=== PATIENT | male | born 1975 | race Caucasian/White ===

== ENCOUNTER → 2016-08-05 | Emergency (ER) | payer SELFPAY ==
[~2016-08-05] MED LIST: FAMOTIDINE 20 MG/50 ML IVPB 20 MG in PREMIX 50 IVPB ONE; FAMOTIDINE 20 MG/50 ML IVPB 50 ML IVPB ONE; FOLIC ACID INJECTION - 1 MG, THIAMINE HCL 100 MG, MULTIVIT INJECTION ADULT 10 ML in SOD... IVPB ONE; LORAZEPAM CARPU-JECT 2 MG/ML DISP.SYRIN IVPUSH ONE; LORAZEPAM CARPU-JECT 2 MG/ML DISP.SYRIN ONE; ONDANSETRON 4 MG/2 ML VIAL IVPUSH ONE; ONDANSETRON 4 MG/2 ML VIAL ONE; SODIUM CHLORIDE 1,000 ML IV STA; chlordiazePOXIDE HCL 25 MG CAPSULE ONE; chlordiazePOXIDE HCL 25 MG CAPSULE PO ONE
[2016-08-05 21:38] VITALS: TEMP 98.1; BMI 30.8
--- NOTE | 2016-08-05 21:43 | PDOC ---
History of Present Illness - General History Source: Patient Exam Limitations: No Limitations - History of Present Illness Initial Comments: 08/05/16 22:12 The patient is a 40 year old male with a significant past medical history of ETOH abuse, smoker (8-10 cigs/day), and depression, who presents to the ER via EMS for alcohol intoxication for one week and vomiting for one day. Patient states he was out with his friends and drank one bottle of vodka per day for one week. His last bottle of alcohol was this afternoon. Patient also admits to abusing marijuana and cocaine. Patient took himself to [facility] earlier today for alcohol detox. He states he has had a history of alcohol abuse but has not drank alcohol for one year prior to this event. [facility] alerted EMS for patients tachycardia. On EMS arrival, patient had a HR of 149 and an unsteady gait and was given a liter of fluids. On interview, patient states he has anxiety, dizziness, and blurred vision. He states he has had multiple episodes of vomiting today and is slightly short of breath. Patient also reports accompanied abdominal pain localized to the right side. Patient says his symptoms are aggravated by light and loud noise. He reports he has not eaten for 3 days. Denies diarrhea, hematochezia Denies hematuria Denies chest pain Denies trauma, head or neck injury Denies diaphoresis Denies fever, chills, cough <Amara Fallon - Last Filed: 08/06/16 01:56> - General History Source: Patient <Mingo Koch - Last Filed: 08/06/16 02:02> - General Chief Complaint: Tachycardia Stated Complaint: INTOX Time Seen by Provider: 08/05/16 21:32 Past History <Amara Fallon - Last Filed: 08/06/16 01:56> - Past Medical History Anemia: No Asthma: No Cancer: No Cardiac Disorders: No CVA: No COPD: No CHF: No Diabetes: No GI Disorders: No Disorders: No HTN: No Hypercholesterolemia: No Kidney Stones: No Liver Disease: No Suicide Attempt (Hx): No Seizures: No Thyroid Disease: No - Surgical History Abdominal Surgery: No Appendectomy: No Cardiac Surgery: No Cholecystectomy: No Lung Surgery: No Neurologic Surgery: No Orthopedic Surgery: Yes (L clavicle fx sx IN 2OO6) - Reproductive History Testicular Surgery: No - Psycho/Social/Smoking Cessation Hx Anxiety: No Suicidal Ideation: No Smoking History: Current every day smoker Have you smoked in the past 12 months: No Number of Cigarettes Smoked Daily: 20 If you are a former smoker, when did you quit?: 2014 Information on smoking cessation initiated: No 'Breaking Loose' booklet given: 09/03/15 Hx Alcohol Use: No Drug/Substance Use Hx: No Substance Use Type: Alcohol Hx Substance Use Treatment: Yes (03/29/15 TO 04/02/15) <Mingo Koch - Last Filed: 08/06/16 02:02> - Past Medical History Allergies/Adverse Reactions: Allergies Allergy/AdvReac Type Severity Reaction Status Date / Time No Known Allergies Allergy Verified 08/05/16 21:32 Home Medications: Ambulatory Orders NK [No Known Home Medication] 08/06/16 Review of Systems - Review of Systems Able to Perform ROS?: Yes Comments:: 08/05/16 22:12 CONSTITUTIONAL: Absent: fever, no chills, no fatigue EYES: Present: blurred vision ENT: Absent: ear pain, no sore throat CARDIOVASCULAR: Absent: chest pain, no palpitations RESPIRATORY: Present: shortness of breath Absent: cough GI: Present: abdominal pain, nausea, vomiting Absent: no constipation, no diarrhea GENITOURINARY: Absent: dysuria, no frequency, no hematuria MUSCULOSKELETAL: Absent: back pain, no arthralgia, no myalgia SKIN: Absent: rash NEURO: Present: Dizziness Absent: headache <Uts,Amara - Last Filed: 08/06/16 01:56> *Physical Exam - Vital Signs Last Vital Signs Temp Pulse Resp BP Pulse Ox 98.1 F 116 H 14 153/81 100 08/05/16 21:33 08/05/16 21:33 08/05/16 21:33 08/05/16 21:33 08/05/16 21:33 - Physical Exam Comments: 08/05/16 22:13 GENERAL: Alert and oriented x 3. Well-appearing, well-nourished. No apparent distress. HEENT: Normocephalic, atraumatic. PERRL, EOM intact. CARDIOVASCULAR: Tachycardic. Normal S1, S2. Regular rhythm. PULMONARY: Clear to auscultation bilaterally. ABDOMEN: Soft, non-distended, non-tender. EXTREMITIES: Normal ROM in all four extremities. No gross deformities. SKIN: Warm, dry. No rash NEUROLOGICAL: Hand tremors on arm extension <Amara Fallon - Last Filed: 08/06/16 01:56> - Vital Signs Last Vital Signs Temp Pulse Resp BP Pulse Ox 98.1 F 116 H 14 153/81 100 08/05/16 21:33 08/05/16 21:33 08/05/16 21:33 08/05/16 21:33 08/05/16 21:33 <Mingo Koch - Last Filed: 08/06/16 02:02> ED Treatment Course - LABORATORY CBC & Chemistry Diagram: 08/05/16 22:55 08/05/16 22:55 - RADIOLOGY Radiograph Interpretation: 08/06/16 01:54 Chest XR impression reported by Dr. Yoli Flores: Slightly limited examination without evidence of acute cardiopulmonary disease <Amara Fallon - Last Filed: 08/06/16 01:56> - LABORATORY CBC & Chemistry Diagram: 08/05/16 22:55 08/05/16 22:55 <Mingo Koch - Last Filed: 08/06/16 02:02> Medical Decision Making - Medical Decision Making 08/06/16 01:22 Dr. Koch: The scribe's documentation has been prepared under my direction and personally reviewed by me in its entirery. I confirm that the note above accurately reflects all work, treatment, procedures, and medical decision making performed by me. 08/06/16 02:00 HR is 104 now. Pt feeling better. Hemodynamically stable. Will discharge to [facility]. <Mingo Koch - Last Filed: 08/06/16 02:02> *DC/Admit/Observation/Transfer - Attestations Scribe Attestion: 08/05/16 22:15 Documentation prepared by Amara Fallon, acting as medical staff services manager for Mingo Koch DO. <Amara Fallon - Last Filed: 08/06/16 01:56> - Discharge Dispostion Admit: No <Mingo Koch - Last Filed: 08/06/16 02:02> Diagnosis at time of Disposition: EtOH dependence - Discharge Dispostion Disposition: I.P. ALCOHOL/SUBS ABUSE REHAB Condition at time of disposition: Stable - Patient Instructions Printed Discharge Instructions: DI for Alcohol Abuse
[2016-08-05 23:03] LABS: BASOPHIL 0.4 % (0-2.0); EOSINOPHIL 0.5 % (0-4.5); MCH 31.4 pg (25.7-33.7); MCHC 33.9 g/dl (32.0-35.9); MEAN CELL VOLUME 92.7 fl (80-96); MEAN PLT VOLUME 8.4 fl (7.5-11.1); NEUTROPHILS 69.7 % (42.8-82.8); PLATELET COUNT 230 K/MM3 (134-434); RDW 13.7 % (11.9-15.9); WHITE BLOOD COUNT 7.8 K/mm3 (4.0-10.0)
[2016-08-05 23:13] LABS: INR 1.09 (0.82-1.09)
[2016-08-06 00:16] LABS: ALK PHOS 65 U/L (45-117); ANION GAP 12 (8-16); BILIRUBIN,TOTAL 0.3 mg/dL (0.2-1.0); CALCIUM 8.4 mg/dL (8.5-10.1); CO2 27 mmol/L (21-32); COCKROFT - GAULT 185.21; CREATININE 0.8 mg/dL (0.7-1.3); GLUCOSE,RANDOM 113 mg/dL (74-106); MAGNESIUM 1.7 mg/dL (1.8-2.4); SGOT/AST 170 U/L (15-37); SGPT/ALT 162 U/L (12-78); TOT PROT 7.2 g/dl (6.4-8.2); TROPONIN I < 0.02 ng/ml (0.00-0.05)
[2016-08-06 02:03] VITALS: BP 114/63; PULSE 103
--- NOTE | 2016-08-06 11:18 | EKG ---
Test Reason : Blood Pressure : / mmHG Vent. Rate : 110 BPM Atrial Rate : 110 BPM P-R Int : 162 ms QRS Dur : 096 ms QT Int : 358 ms P-R-T Axes : 073 083 057 degrees QTc Int : 484 ms SINUS TACHYCARDIA OTHERWISE NORMAL ECG WHEN COMPARED WITH ECG OF 17-JAN-2001 20:53, PREVIOUS ECG IS PRESENT Confirmed by NIEVES CAREY MD ([id number]) on 08/06/2016 11:18:39 AM Referred By: Confirmed By:NIEVES CAREY MD
--- NOTE | 2016-08-09 12:57 | EKG ---
Test Reason : Blood Pressure : / mmHG Vent. Rate : 117 BPM Atrial Rate : 117 BPM P-R Int : 172 ms QRS Dur : 098 ms QT Int : 332 ms P-R-T Axes : 056 046 033 degrees QTc Int : 463 ms SINUS TACHYCARDIA INCOMPLETE RIGHT BUNDLE BRANCH BLOCK WHEN COMPARED WITH ECG OF 17-JAN-2001 20:53, LIKELY NO SIGNIFICANT CHANGES WERE SEEN Confirmed by DAREN CORRALES MD ([id number]) on 08/09/2016 12:57:23 PM Referred By: Confirmed By:DAREN CORRALES MD
== END | disposition other institution (70) ==
LOC: JER 21:21
PROC: 3E033GC Introduction of Other Therapeutic Substance into Peripheral Vein, Percutaneous Approach (ICD-10-PCS; principal; 2016-08-05)
PROC: 3E0337Z Introduction of Electrolytic and Water Balance Substance into Peripheral Vein, Percutaneous Approach (ICD-10-PCS; 2016-08-05)
DX: F10.20 Alcohol dependence, uncomplicated (principal); F17.210 Nicotine dependence, cigarettes, uncomplicated
CPT/HCPCS: 36415; 71010-TC; 80053; 80307; 82550; 82553; 83690; 83735; 83880; 84484; 85025; 85610; 86850; 86900; 86901; 93005; 93010; 99285-25

== ENCOUNTER 2016-08-06 04:30 | Inpatient (IN) | payer OTHER ==
--- NOTE | 2016-08-06 04:49 | HP ---
CIWA Score - CIWA Score Nausea/Vomitin Muscle Tremors: 5 Anxiety: 4-Mod. Anxious/Guarded Agitation: 4-Moderately Restless Paroxysmal Sweats: 4-Forehead w/Sweat Beads Orientation: 0-Oriented Tacttile Disturbances: 3-Moderate Itch/Numb/Burn Auditory Disturbances: 2-Mild Harshness/Frighten Visual Disturbances: 2-Mild Sensitivity Headache: 1-Very Mild CIWA-Ar Total Score: 28 Admission ROS BHS - HPI Chief Complaint: c/o withdrawal sx's seeking detox txment. Allergies/Adverse Reactions: Allergies Allergy/AdvReac Type Severity Reaction Status Date / Time No Known Allergies Allergy Verified 08/06/16 04:43 History of Present Illness: 40 Y.O. MALE WITH ALCOHOLISM ADMITTED TO DETOX. CLIENT SENT FROM [facility] AFTER BEING SENT THERE YESTERDAY FOR SOB, N/V, AND TACHYCARDIA (HR 149'S). HE IS KNOWN TO [facility]. REORTS A ONE YEAR LONG SOBRIETY RELAPSING 2 WEEKS AGO. Exam Limitations: No Limitations - Ebola screening Have you traveled outside of the country in the last 21 days: No Have you had contact with anyone from an Ebola affected area: No Have you been sick,other than usual withdrawal symptoms: No Do you have a fever: No - Review of Systems Constitutional: Chills, Night Sweats EENT: reports: Tearing Respiratory: reports: No Symptoms reported Cardiac: reports: No Symptoms Reported GI: reports: Nausea, Poor Appetite, Vomiting, Abdominal cramping : reports: No Symptoms Reported Musculoskeletal: reports: No Symptoms Reported Integumentary: reports: No Symptoms Reported Neuro: reports: No Symptoms reported Endocrine: reports: No Symptoms Reported Hematology: reports: No Symptoms Reported Psychiatric: reports: Anxious Other Systems: Reviewed and Negative Patient History - Patient Medical History Hx Anemia: No Hx Asthma: No Hx Chronic Obstructive Pulmonary Disease (COPD): No Hx Cancer: No Hx Cardiac Disorders: No Hx Congestive Heart Failure: No Hx Hypertension: No Hx Hypercholesterolemia: No Hx Pacemaker: No HX Cerebrovascular Accident: No Hx Seizures: No Hx Diabetes: No Hx Gastrointestinal Disorders: No Hx Liver Disease: No Hx Genitourinary Disorders: No Hx Sexually Transmitted Disorders: No Hx Renal Disease (ESRD): No Hx Thyroid Disease: No Hx Human Immunodeficiency Virus (HIV): No Hx Hepatitis C: No Hx Depression: Yes (NO MEDS) Hx Suicide Attempt: No Hx Bipolar Disorder: No Hx Schizophrenia: No Other Medical History: ANXIETY - Patient Surgical History Past Surgical History: Yes Hx Neurologic Surgery: No Hx Cataract Extraction: No Hx Cardiac Surgery: No Hx Lung Surgery: No Hx Breast Surgery: No Hx Breast Biopsy: No Hx Abdominal Surgery: No Hx Appendectomy: No Hx Cholecystectomy: No Hx Genitourinary Surgery: No Hx Section: No Hx Orthopedic Surgery: Yes (L clavicle fx sx IN 2OO6) Anesthesia Reaction: No - PPD History Previous Implant?: Yes Documented Results: Negative w/proof Implanted On Prior [facility] Admission?: Yes Date: 09/05/15 Results: O MM PPD to be Administered?: No - Smoking Cessation Smoking history: Current every day smoker Have you smoked in the past 12 months: No Aproximately how many cigarettes per day: 10 Hx Chewing Tobacco Use: No Initiated information on smoking cessation: Yes 'Breaking Loose' booklet given: 08/06/16 - Substance & Tx. History Hx Alcohol Use: Yes Hx Substance Use: No Substance Use Type: Alcohol Hx Substance Use Treatment: Yes ([facility]) - Substances Abused VODKA Route: Oral Frequency: Daily Amount used: 1 QUART Age of first use: 14 Date of Last Use: 08/05/16 Family Disease History - Family Disease History Family Disease History: Diabetes: Father (HTN), Heart Disease: Father, [place]: Grandparent, Other: Sister (pain killer) Admission Physical Exam [facility] - Physical General Appearance: Yes: Appropriately Dressed, Moderate Distress, Alcohol on Breath HEENTM: Yes: EOMI, Normocephalic, Normal Voice, WILLEM, Pharynx Normal, Rhinorrhea Respiratory: Yes: Chest Non-Tender, Lungs Clear, Normal Breath Sounds, No Respiratory Distress, No Accessory Muscle Use Neck: Yes: No masses,lesions,Nodules, Supple, Trachea in good position Breast: Yes: Breast Exam Deferred Cardiology: Yes: Regular Rhythm, S1, S2, Tachycardia Abdominal: Yes: Normal Bowel Sounds, Non Tender, Flat, Soft Genitourinary: Yes: Within Normal Limits Back: Yes: Within Normal Limits Musculoskeletal: Yes: full range of Motion, Gait Steady Extremities: Yes: Normal Capillary Refill, Normal Range of Motion, Non-Tender, Tremors Neurological: Yes: day care worker II-XII NML intact, Fully Oriented, Alert, Motor Strength 5/5 Integumentary: Yes: Normal Color, Warm, Diaphoresis Lymphatic: Yes: Within Normal Limits - Diagnostic (1) Alcohol dependence with withdrawal Current Visit: No Status: Acute Qualifiers: Complication of substance-induced condition: uncomplicated Qualified Code(s): F10.230 - Alcohol dependence with withdrawal, uncomplicated (2) Nicotine dependence Current Visit: No Status: Chronic Cleared for Admission [facility] - Detox or Rehab [facility] Level of Care: Medically Managed Detox Regimen/Protocol: Librium S Breath Alcohol Content Breath Alcohol Content: 0.081 Vital Signs - Vital Signs Vital Signs Refused: No Temperature: 97.5 F Temperature Source: Oral Pulse Rate: 128 Respiratory Rate: 22 Blood Pressure: 158/76 BP Location: Left Arm Blood Pressure Position: Sitting - Height Height: 6 ft 2 in - Weight Weight: 104.78 kg Weight Measurement Method: Standing Scale Body Mass Index (BMI): 29.6 Urine Drug Screen - Test Device Lot Number: [id number] Expiration Date: 02/24/18 - Control Is Test Valid: Yes - Results Drug Screen Negative: Yes Urine Drug Screen Results: MET-Methamphetamine
[2016-08-06 04:55] VITALS: BMI 29.6
[2016-08-06] MEDS ORDERED: P-EPHED 60MG/TRIPROLIDI 2.5MG TABLET PO PRN (05:02)
[2016-08-06] MEDS ORDERED: NICOTINE POLACRILEX 2 MG GUM BC PRN (05:02)
[2016-08-06] MEDS ORDERED: LOPERAMIDE HCL 2 MG CAPSULE PO PRN (05:02)
[2016-08-06] MEDS ORDERED: MAGNESIUM CITRATE 300 ML BOTTLE PO PRN (05:02)
[2016-08-06] MEDS ORDERED: MAGNESIUM HYDROX 2400MG/30ML ORAL SUSPENSION 30 ML CUP PO PRN (05:02)
[2016-08-06] MEDS ORDERED: guaiFENesin/D-METHORPHAN HB 10 ML UNIT-DOSE CUPS PO PRN (05:02)
[2016-08-06] MEDS ORDERED: ACETAMINOPHEN 325 MG TABLET (FP) PO PRN (05:02)
[2016-08-06] MEDS ORDERED: MENTHOL/PHENOL 1 EACH UD MM PRN (05:02)
[2016-08-06] MEDS ORDERED: IBUPROFEN 400 MG TABLET (FP) PO PRN (05:02)
[2016-08-06] MEDS ORDERED: diphenhydrAMINE HCL 50 MG CAPSULE PO PRN (05:02)
[2016-08-06] MEDS ORDERED: TRIMETHOBENZAMIDE HCL 200MG/2ML INJ IM PRN (05:04)
[2016-08-06] MEDS: chlordiazePOXIDE HCL 25 MG CAPSULE PO SCH ×4 (06:23→22:11)
--- NOTE | 2016-08-06 09:35 | CONSULT ---
[facility] Psychiatric Consult - Data Date of interview: 08/06/16 Admission source: [facility] Identifying data: Readmission to [facility] for this 40 y/o male seeking detox treatment on for alcohol dependence.Patient is single without children,domiciled and employed. Substance Abuse History: - Smoking Cessation. Smoking history: Current every day smoker. Have you smoked in the past 12 months: No. Aproximately how many cigarettes per day: 10. Hx Chewing Tobacco Use: No. Initiated information on smoking cessation: Yes. 'Breaking Loose' booklet given: 08/06/16. - Substance & Tx. History. Hx Alcohol Use: Yes. Hx Substance Use: No. Substance Use Type : Alcohol. Hx Substance Use Treatment: Yes ([facility]). - Substances Abused. VODKA. Route: Oral. Frequency: Daily. Amount used: 1 QUART. Age of first use : 14. Date of Last Use: 08/05/16. Confirmed by patient. Medical History: Patient endorses good general health. Psychiatric History: Patient denies. Physical/Sexual Abuse/Trauma History: Patient denies. Additional Comment: Urine Drug Screen Results: MET-Methamphetamine.Noted. Mental Status Exam - Mental Status Exam Alert and Oriented to: Time, Place, Person Cognitive Function: Good Patient Appearance: Well Groomed Mood: Nervous, Withdrawn, Anxious Affect: Mood Congruent Patient Behavior: Fatigued, Appropriate, Cooperative Speech Pattern: Clear Voice Loudness: Normal Thought Process: Goal Oriented Thought Disorder: Not Present Hallucinations: Denies Suicidal Ideation: Denies Homicidal Ideation: Denies Insight/Judgement: Poor Sleep: Poorly, Difficulty falling asleep Appetite: Good Muscle strength/Tone: Normal Gait/Station: Normal Psychiatric Findings - Problem List ([place] 1, 2,3) (1) Alcohol dependence with withdrawal Current Visit: Yes Status: Acute Qualifiers: Complication of substance-induced condition: uncomplicated Qualified Code(s): F10.230 - Alcohol dependence with withdrawal, uncomplicated (2) Nicotine dependence Current Visit: Yes Status: Acute (3) Drug-induced mood disorder Current Visit: Yes Status: Acute (4) Insomnia Current Visit: Yes Status: Acute - Initial Treatment Plan Initial Treatment Plan: Psychoeducation.Detoxification.Medication : seroquel 100 mg po hs (patient's request).Side effects/benefits discussed with patient.He agrees with this careplan.Observation.
[2016-08-06] MEDS: PRENATAL VITAMINS W/ FOLIC ACID TABLET (FP) PO SCH (10:21)
[2016-08-06] MEDS: NICOTINE 14 MG/24 HOURS TOPICAL PATCH TD SCH (10:21)
--- NOTE | 2016-08-06 12:57 | PN ---
S CIWA - CIWA Score Nausea/Vomitin-Mild Nausea/No Vomiting Muscle Tremors: 4-Moderate,w/Arms Extend Anxiety: 4-Mod. Anxious/Guarded Agitation: 2 Paroxysmal Sweats: 3 Orientation: 0-Oriented Tacttile Disturbances: 2-Mild Itch/Numbness/Burn Auditory Disturbances: 0-None Visual Disturbances: 3-Moderate Sensitivity Headache: 0-None Present CIWA-Ar Total Score: 19 BHS Progress Note (SOAP) Subjective: Interrupted sleep, Diarrhea, Vomiting, Sweating, Body Aches, Tremors. Objective: PT. A & O X 3, OBSERVED AMBULATING ON UNIT. 08/06/16 12:55 Vital Signs Temperature 98.1 F 08/06/16 10:04 Pulse Rate 96 H 08/06/16 10:04 Respiratory Rate 16 08/06/16 10:04 Blood Pressure 136/75 08/06/16 10:04 O2 Sat by Pulse Oximetry (%) ADMISSION LABS PENDING. 08/06/16 12:56 Assessment: 08/06/16 12:56 WITHDRAWAL SYMPTOMS. Plan: CONTINUE DETOX. PATIENT ADVISED TO FOLLOW-UP WITH H[facility]AKER [employer] AFTER DISCHARGE FROM DETOX FOR GENERAL MEDICAL ASSESSMENT AND FOR ABNORMAL ADMISSION LAB VALUES.
[2016-08-06] MEDS: chlordiazePOXIDE HCL 25 MG CAPSULE PO PRN (14:24)
[2016-08-06] MEDS: MAG HYDROX/AL HYDROX/SIMETH 30 ML UNIT-DOSE CUP PO PRN (15:30)
[2016-08-06 15:58] LABS: MCH 31.1 pg (25.7-33.7); MCHC 33.2 g/dl (32.0-35.9); MEAN CELL VOLUME 93.7 fl (80-96); MEAN PLT VOLUME 9.1 fl (7.5-11.1); PLATELET COUNT 219 K/MM3 (134-434); WHITE BLOOD COUNT 6.7 K/mm3 (4.0-10.0)
[2016-08-06 16:26] LABS: ALBUMIN 3.9 g/dl (3.4-5.0); ANION GAP 13 (8-16); CALCIUM 8.4 mg/dL (8.5-10.1); CO2 25 mmol/L (21-32); COCKROFT - GAULT 237.6; CREATININE 0.6 mg/dL (0.7-1.3); GLUCOSE,RANDOM 102 mg/dL (74-106); SGOT/AST 156 U/L (15-37); SGPT/ALT 152 U/L (12-78)
[2016-08-06 16:28] LABS: ALK PHOS 62 U/L (45-117); BILIRUBIN,TOTAL 0.9 mg/dL (0.2-1.0); TOT PROT 6.9 g/dl (6.4-8.2)
[2016-08-06] MEDS: THIAMINE HCL 100 MG TABLET (FP) PO SCH (22:11)
[2016-08-06] MEDS: QUEtiapine FUMARATE 100 MG TABLET (FP) PO SCH (22:11)
[2016-08-07] MEDS: MAG HYDROX/AL HYDROX/SIMETH 30 ML UNIT-DOSE CUP PO PRN ×2 (00:51→15:12)
[2016-08-07] MEDS: chlordiazePOXIDE HCL 25 MG CAPSULE PO SCH ×4 (05:28→22:04)
[2016-08-07] MEDS: NICOTINE 14 MG/24 HOURS TOPICAL PATCH TD SCH (10:15)
[2016-08-07] MEDS: PRENATAL VITAMINS W/ FOLIC ACID TABLET (FP) PO SCH (10:15)
[2016-08-07] MEDS: hydrOXYzine PAMOATE 50 MG CAPSULE (FP) PO PRN ×3 (11:03→19:20)
[2016-08-07] MEDS: chlordiazePOXIDE HCL 25 MG CAPSULE PO PRN (13:45)
--- NOTE | 2016-08-07 14:55 | PN ---
S CIWA - CIWA Score Nausea/Vomitin Muscle Tremors: 4-Moderate,w/Arms Extend Anxiety: 2 Agitation: 1-Slight > Activity Paroxysmal Sweats: 3 Orientation: 0-Oriented Tacttile Disturbances: 0-None Auditory Disturbances: 2-Mild Harshness/Frighten Visual Disturbances: 2-Mild Sensitivity Headache: 0-None Present CIWA-Ar Total Score: 17 BHS Progress Note (SOAP) Subjective: Tremors, BNausea, Back Ache, Sweating, Interrupted Sleep. Objective: PT. A & O X 3, OBSERVED AMBULATING ON UNIT. 08/07/16 14:54 Vital Signs Temperature 96.4 F L 08/07/16 12:58 Pulse Rate 113 H 08/07/16 12:58 Respiratory Rate 20 08/07/16 12:58 Blood Pressure 142/86 08/07/16 12:58 O2 Sat by Pulse Oximetry (%) Laboratory Last Values WBC 6.7 K/mm3 (4.0-10.0) 08/06/16 11:15 RBC 4.35 M/mm3 (4.00-5.60) 08/06/16 11:15 Hgb 13.5 GM/dL (11.7-16.9) 08/06/16 11:15 Hct 40.8 % (35.4-49) 08/06/16 11:15 MCV 93.7 fl (80-96) 08/06/16 11:15 MCHC 33.2 g/dl (32.0-35.9) 08/06/16 11:15 RDW 14.0 % (11.9-15.9) 08/06/16 11:15 Plt Count 219 K/MM3 (134-434) 08/06/16 11:15 MPV 9.1 fl (7.5-11.1) 08/06/16 11:15 Sodium 138 mmol/L (136-145) 08/06/16 11:15 Potassium 3.6 mmol/L (3.5-5.1) 08/06/16 11:15 Chloride 100 mmol/L (98-107) 08/06/16 11:15 Carbon Dioxide 25 mmol/L (21-32) 08/06/16 11:15 Anion Gap 13 (8-16) 08/06/16 11:15 BUN 5 mg/dL (7-18) L 08/06/16 11:15 Creatinine 0.6 mg/dL (0.7-1.3) L D 08/06/16 11:15 Creat Clearance w eGFR > 60 (>60) 08/06/16 11:15 Random Glucose 102 mg/dL (74-106) 08/06/16 11:15 Calcium 8.4 mg/dL (8.5-10.1) L 08/06/16 11:15 Total Bilirubin 0.9 mg/dL (0.2-1.0) D 08/06/16 11:15 AST 156 U/L (15-37) H 08/06/16 11:15 ALT 152 U/L (12-78) H 08/06/16 11:15 Alkaline Phosphatase 62 U/L (45-117) 08/06/16 11:15 Total Protein 6.9 g/dl (6.4-8.2) 08/06/16 11:15 Albumin 3.9 g/dl (3.4-5.0) 08/06/16 11:15 RPR Titer Nonreactive (NONREACTIVE) 08/06/16 11:15 LABS NOTED. Assessment: 08/07/16 14:55 WITHDRAWAL SYMPTOMS. Plan: CONTINUE DETOX. ADVISED PATIENT TO FOLLOW-UP WITH [facility]GER [facility] AFTER DISCHARGE FROM DETOX FOR GENERAL MEDICAL ASSESSMENT AND FOR ABNORMAL ADMISSION LAB VALUES.
[2016-08-07] MEDS: THIAMINE HCL 100 MG TABLET (FP) PO SCH (22:04)
[2016-08-07] MEDS: QUEtiapine FUMARATE 100 MG TABLET (FP) PO SCH (22:04)
[2016-08-08] MEDS: MAG HYDROX/AL HYDROX/SIMETH 30 ML UNIT-DOSE CUP PO PRN (00:48)
[2016-08-08] MEDS: chlordiazePOXIDE 5 MG CAPSULE PO SCH ×4 (05:13→22:04)
[2016-08-08] MEDS: hydrOXYzine PAMOATE 50 MG CAPSULE (FP) PO PRN ×4 (05:15→18:57)
[2016-08-08] MEDS: NICOTINE 14 MG/24 HOURS TOPICAL PATCH TD SCH (10:07)
[2016-08-08] MEDS: PRENATAL VITAMINS W/ FOLIC ACID TABLET (FP) PO SCH (10:07)
[2016-08-08] MEDS: PANTOPRAZOLE 40 MG TABLET (FP) PO SCH (12:42)
[2016-08-08] MEDS: chlordiazePOXIDE HCL 25 MG CAPSULE PO PRN (14:33)
--- NOTE | 2016-08-08 16:30 | PN ---
S Progress Note (SOAP) Subjective: Interrupted sleep, Diarrhea, Body aches. Objective: PT. A & O X 3, OBSERVED AMBULATING ON UNIT. 08/08/16 16:27 Vital Signs Temperature 96.8 F L 08/08/16 13:15 Pulse Rate 94 H 08/08/16 13:15 Respiratory Rate 20 08/08/16 13:15 Blood Pressure 132/84 08/08/16 13:15 O2 Sat by Pulse Oximetry (%) Laboratory Last Values WBC 6.7 K/mm3 (4.0-10.0) 08/06/16 11:15 RBC 4.35 M/mm3 (4.00-5.60) 08/06/16 11:15 Hgb 13.5 GM/dL (11.7-16.9) 08/06/16 11:15 Hct 40.8 % (35.4-49) 08/06/16 11:15 MCV 93.7 fl (80-96) 08/06/16 11:15 MCHC 33.2 g/dl (32.0-35.9) 08/06/16 11:15 RDW 14.0 % (11.9-15.9) 08/06/16 11:15 Plt Count 219 K/MM3 (134-434) 08/06/16 11:15 MPV 9.1 fl (7.5-11.1) 08/06/16 11:15 Sodium 138 mmol/L (136-145) 08/06/16 11:15 Potassium 3.6 mmol/L (3.5-5.1) 08/06/16 11:15 Chloride 100 mmol/L (98-107) 08/06/16 11:15 Carbon Dioxide 25 mmol/L (21-32) 08/06/16 11:15 Anion Gap 13 (8-16) 08/06/16 11:15 BUN 5 mg/dL (7-18) L 08/06/16 11:15 Creatinine 0.6 mg/dL (0.7-1.3) L D 08/06/16 11:15 Creat Clearance w eGFR > 60 (>60) 08/06/16 11:15 Random Glucose 102 mg/dL (74-106) 08/06/16 11:15 Calcium 8.4 mg/dL (8.5-10.1) L 08/06/16 11:15 Total Bilirubin 0.9 mg/dL (0.2-1.0) D 08/06/16 11:15 AST 156 U/L (15-37) H 08/06/16 11:15 ALT 152 U/L (12-78) H 08/06/16 11:15 Alkaline Phosphatase 62 U/L (45-117) 08/06/16 11:15 Total Protein 6.9 g/dl (6.4-8.2) 08/06/16 11:15 Albumin 3.9 g/dl (3.4-5.0) 08/06/16 11:15 RPR Titer Nonreactive (NONREACTIVE) 08/06/16 11:15 LABS NOTED. Assessment: 08/08/16 16:29 WITHDRAWAL SYMPTOMS. Plan: CONTINUE DETOX. ADVISED PATIENT TO FOLLOW-UP WITH DIRECTOR [facility] AFTER DISCHARGE FROM DETOX FOR GENERAL MEDICAL ASSESSMENT AND FOR ABNORMAL ADMISSION LAB VALUES.
[2016-08-08] MEDS: THIAMINE HCL 100 MG TABLET (FP) PO SCH (22:03)
[2016-08-08] MEDS: QUEtiapine FUMARATE 100 MG TABLET (FP) PO SCH (22:04)
[2016-08-08 23:10] LABS: URINE APPEARANCE CLEAR; URINE BILIRUBIN NEGATIVE (NEGATIVE); URINE BLOOD NEGATIVE (NEGATIVE); URINE COLOR STRAW; URINE GLUCOSE (UA) NEGATIVE (NEGATIVE); URINE KETONE NEGATIVE (NEGATIVE); URINE LEUK ESTERASE NEGATIVE (NEGATIVE); URINE NITRITE NEGATIVE (NEGATIVE); URINE PROTEIN NEGATIVE (NEGATIVE); URINE UROBILINOGEN NEGATIVE E.U./dl (0.2-1.0)
[2016-08-09] MEDS: hydrOXYzine PAMOATE 50 MG CAPSULE (FP) PO PRN ×5 (03:35→22:20)
[2016-08-09] MEDS: MAG HYDROX/AL HYDROX/SIMETH 30 ML UNIT-DOSE CUP PO PRN (03:35)
[2016-08-09] MEDS: chlordiazePOXIDE HCL 10 MG CAPSULE PO SCH ×4 (05:38→22:18)
[2016-08-09] MEDS: PANTOPRAZOLE 40 MG TABLET (FP) PO SCH (10:15)
[2016-08-09] MEDS: PRENATAL VITAMINS W/ FOLIC ACID TABLET (FP) PO SCH (10:15)
[2016-08-09] MEDS: NICOTINE 14 MG/24 HOURS TOPICAL PATCH TD SCH (10:16)
--- NOTE | 2016-08-09 12:05 | PN ---
BHS Progress Note (SOAP) Subjective: Sweating,interrupted sleep,restless Objective: 08/09/16 12:04 Vital Signs - 8 hr 08/09/16 08/09/16 06:15 09:22 Temperature 96.4 F L 96.3 F L Pulse Rate 113 H 118 H Respiratory 18 20 Rate Blood Pressure 114/81 112/86 Laboratory Last Values WBC 6.7 K/mm3 (4.0-10.0) 08/06/16 11:15 RBC 4.35 M/mm3 (4.00-5.60) 08/06/16 11:15 Hgb 13.5 GM/dL (11.7-16.9) 08/06/16 11:15 Hct 40.8 % (35.4-49) 08/06/16 11:15 MCV 93.7 fl (80-96) 08/06/16 11:15 MCHC 33.2 g/dl (32.0-35.9) 08/06/16 11:15 RDW 14.0 % (11.9-15.9) 08/06/16 11:15 Plt Count 219 K/MM3 (134-434) 08/06/16 11:15 MPV 9.1 fl (7.5-11.1) 08/06/16 11:15 Sodium 138 mmol/L (136-145) 08/06/16 11:15 Potassium 3.6 mmol/L (3.5-5.1) 08/06/16 11:15 Chloride 100 mmol/L (98-107) 08/06/16 11:15 Carbon Dioxide 25 mmol/L (21-32) 08/06/16 11:15 Anion Gap 13 (8-16) 08/06/16 11:15 BUN 5 mg/dL (7-18) L 08/06/16 11:15 Creatinine 0.6 mg/dL (0.7-1.3) L D 08/06/16 11:15 Creat Clearance w eGFR > 60 (>60) 08/06/16 11:15 Random Glucose 102 mg/dL (74-106) 08/06/16 11:15 Calcium 8.4 mg/dL (8.5-10.1) L 08/06/16 11:15 Total Bilirubin 0.9 mg/dL (0.2-1.0) D 08/06/16 11:15 AST 156 U/L (15-37) H 08/06/16 11:15 ALT 152 U/L (12-78) H 08/06/16 11:15 Alkaline Phosphatase 62 U/L (45-117) 08/06/16 11:15 Total Protein 6.9 g/dl (6.4-8.2) 08/06/16 11:15 Albumin 3.9 g/dl (3.4-5.0) 08/06/16 11:15 Urine Color Straw 08/08/16 18:55 Urine Appearance Clear 08/08/16 18:55 Urine pH 8.0 (5.0-8.0) D 08/08/16 18:55 Ur Specific [place] 1.015 (1.005-1.025) 08/08/16 18:55 Urine Protein Negative (NEGATIVE) 08/08/16 18:55 Urine Glucose (UA) Negative (NEGATIVE) 08/08/16 18:55 Urine Ketones Negative (NEGATIVE) 08/08/16 18:55 Urine Blood Negative (NEGATIVE) 08/08/16 18:55 Urine Nitrite Negative (NEGATIVE) 08/08/16 18:55 Urine Bilirubin Negative (NEGATIVE) 08/08/16 18:55 Urine Urobilinogen Negative E.U./dl (0.2-1.0) 08/08/16 18:55 Ur Leukocyte Esterase Negative (NEGATIVE) 08/08/16 18:55 RPR Titer Nonreactive (NONREACTIVE) 08/06/16 11:15 labs noted Assessment: 08/09/16 12:04 Withdrawal sx. Plan: Continue detox
[2016-08-09] MEDS ORDERED: QUEtiapine FUMARATE 50 MG TABLET PO ONE (13:31)
--- NOTE | 2016-08-09 13:32 | PN ---
Psychiatric Progress Note Vital Signs: Vital Signs Period Temp Pulse Resp BP Sys/Carlos Pulse Ox Last 24 Hr 96.3 F-98.9 F 87-118 18-20 112-128/72-87 Date of Session: 08/09/16 Chief Complaint:: " I feel anxious." HPI: 40 y/o male undergoing detox treament for alcohol dependence.Doing well except for transient feelings of anxiety.Mild symptoms.Patient is requesting an additional dose of seroquel. ROS: Unremarkable. Current Medications: Active Medications Generic Name Dose Route Start Last Admin Trade Name Freq PRN Reason Stop Dose Admin Acetaminophen 650 mg 08/06/16 05:02 08/09/16 10:18 Tylenol - PO 650 mg Q4H PRN Administration FEVER OR PAIN Al Hydroxide/Mg Hydroxide 30 ml 08/06/16 05:02 08/09/16 03:35 Mylanta Oral Suspension - PO 30 ml Q6H PRN Administration DYSPEPSIA Chlordiazepoxide HCl 10 mg 08/09/16 05:00 08/09/16 10:15 Librium - PO 08/09/16 23:01 10 mg [id number] FREDO Administration Diphenhydramine HCl 50 mg 08/06/16 05:02 Benadryl - PO HSMR1 PRN INSOMNIA Eucalyptus/Menthol/Phenol/Sorbitol 1 each 08/06/16 05:02 Cepastat Lozenge - MM Q4H PRN SORE THROAT Guaifenesin 10 ml 08/06/16 05:02 Robitussin Dm - PO Q6H PRN COUGH Hydroxyzine Pamoate 50 mg 08/06/16 05:02 08/09/16 12:32 Vistaril - PO 50 mg Q4H PRN Administration AGITATION Ibuprofen 400 mg 08/06/16 05:02 Motrin - PO Q6H PRN SEVERE PAIN Loperamide HCl 4 mg 08/06/16 05:02 Imodium - PO Q6H PRN DIARRHEA Magnesium Citrate 300 ml 08/06/16 05:02 Citroma - PO Q48H PRN CONSTIPATION Magnesium Hydroxide 30 ml 08/06/16 05:02 Milk Of Magnesia - PO DAILY PRN CONSTIPATION Nicotine 14 mg 08/06/16 10:00 08/09/16 10:16 Nicoderm Patch - TD 14 mg DAILY FREDO Administration Nicotine Polacrilex 2 mg 08/06/16 05:02 08/07/16 10:16 Nicorette Gum - BC 2 mg Q2H PRN Administration NICOTINE REPLACEMENT RX Pantoprazole Sodium 40 mg 08/08/16 11:45 08/09/16 10:15 Protonix - PO 40 mg DAILY FREDO Administration Multivit/Folic Acid/Iron 1 tab 08/06/16 10:00 08/09/16 10:15 Vitamins (Sjr) - PO 1 tab DAILY FREDO Administration Pseudoephedrine/Triprolidine 1 combo 08/06/16 05:02 Actifed - PO TID PRN NASAL CONGESTION Quetiapine Fumarate 100 mg 08/06/16 22:00 08/08/16 22:04 Seroquel - PO 100 mg HS FREDO Administration Quetiapine Fumarate 50 mg 08/09/16 13:31 Seroquel - PO 08/09/16 13:32 ONCE ONE Thiamine HCl 100 mg 08/06/16 22:00 08/08/16 22:03 Vitamin B1 - PO 100 mg HS FREDO Administration Trimethobenzamide HCl 200 mg 08/06/16 05:04 08/06/16 05:38 Tigan Injection - IM 200 mg Q6H PRN Administration NAUSEA Medication(s) Change(s): Seroquel 50 mg po ONE dose now. Current Side Effect: No Lab tests ordered: No Lab tests reviewed: Yes Provider note:: Met with patient.He states that he has been experiencing some degree of anxiety for past few hours.Mr Pittman reports also that seroquel " relaxes " him and facilitates his sleep.Otherwise,detox treatment remains benign.Patient is always visible on the unit,ambulatory,sociable,neatly groomed and adherent to his medications. Total face to face time:: 30 Mental Status Exam - Mental Status Exam Alert and Oriented to: Time, Place, Person Cognitive Function: Good Patient Appearance: Well Groomed Mood: Anxious (mildly), Hopeful Affect: Appropriate, Normal Range Patient Behavior: Appropriate, Cooperative Speech Pattern: Clear, Appropriate Voice Loudness: Normal Thought Process: Intact, Goal Oriented Thought Disorder: Not Present Hallucinations: Denies Suicidal Ideation: Denies Insight/Judgement: Good Sleep: Well Appetite: Good Muscle strength/Tone: Normal Gait/Station: Normal Psychiatric Treatment Plan - Problem List (1) Alcohol dependence with withdrawal Qualifiers: Complication of substance-induced condition: uncomplicated Qualified Code(s): F10.230 - Alcohol dependence with withdrawal, uncomplicated Comment: . (2) Nicotine dependence Comment: . (3) Drug-induced mood disorder Comment: . (4) Insomnia Comment: .
[2016-08-09] MEDS: QUEtiapine FUMARATE 100 MG TABLET (FP) PO SCH (22:18)
[2016-08-09] MEDS: THIAMINE HCL 100 MG TABLET (FP) PO SCH (22:18)
[2016-08-10] MEDS: hydrOXYzine PAMOATE 50 MG CAPSULE (FP) PO PRN (05:27)
[2016-08-10 06:26] VITALS: BP 122/85; PULSE 103; TEMP 95.2
--- NOTE | 2016-08-10 08:45 | DS ---
[facility] Detox Discharge Summary Admission Date: 08/06/16 Discharge Date: 08/10/16 - History Present History: Alcohol Dependence Pertinent Past History: Insomnia Anxiety - Physical Exam Results Vital Signs: Vital Signs Temperature 95.2 F L 08/10/16 06:26 Pulse Rate 103 H 08/10/16 06:26 Respiratory Rate 18 08/10/16 06:26 Blood Pressure 122/85 08/10/16 06:26 O2 Sat by Pulse Oximetry (%) Pertinent Admission Physical Exam Findings: Withdrawal SX. Laboratory Last Values WBC 6.7 K/mm3 (4.0-10.0) 08/06/16 11:15 RBC 4.35 M/mm3 (4.00-5.60) 08/06/16 11:15 Hgb 13.5 GM/dL (11.7-16.9) 08/06/16 11:15 Hct 40.8 % (35.4-49) 08/06/16 11:15 MCV 93.7 fl (80-96) 08/06/16 11:15 MCHC 33.2 g/dl (32.0-35.9) 08/06/16 11:15 RDW 14.0 % (11.9-15.9) 08/06/16 11:15 Plt Count 219 K/MM3 (134-434) 08/06/16 11:15 MPV 9.1 fl (7.5-11.1) 08/06/16 11:15 Sodium 138 mmol/L (136-145) 08/06/16 11:15 Potassium 3.6 mmol/L (3.5-5.1) 08/06/16 11:15 Chloride 100 mmol/L (98-107) 08/06/16 11:15 Carbon Dioxide 25 mmol/L (21-32) 08/06/16 11:15 Anion Gap 13 (8-16) 08/06/16 11:15 BUN 5 mg/dL (7-18) L 08/06/16 11:15 Creatinine 0.6 mg/dL (0.7-1.3) L D 08/06/16 11:15 Creat Clearance w eGFR > 60 (>60) 08/06/16 11:15 Random Glucose 102 mg/dL (74-106) 08/06/16 11:15 Calcium 8.4 mg/dL (8.5-10.1) L 08/06/16 11:15 Total Bilirubin 0.9 mg/dL (0.2-1.0) D 08/06/16 11:15 AST 156 U/L (15-37) H 08/06/16 11:15 ALT 152 U/L (12-78) H 08/06/16 11:15 Alkaline Phosphatase 62 U/L (45-117) 08/06/16 11:15 Total Protein 6.9 g/dl (6.4-8.2) 08/06/16 11:15 Albumin 3.9 g/dl (3.4-5.0) 08/06/16 11:15 Urine Color Straw 08/08/16 18:55 Urine Appearance Clear 08/08/16 18:55 Urine pH 8.0 (5.0-8.0) D 08/08/16 18:55 Ur Specific [place] 1.015 (1.005-1.025) 08/08/16 18:55 Urine Protein Negative (NEGATIVE) 08/08/16 18:55 Urine Glucose (UA) Negative (NEGATIVE) 08/08/16 18:55 Urine Ketones Negative (NEGATIVE) 08/08/16 18:55 Urine Blood Negative (NEGATIVE) 08/08/16 18:55 Urine Nitrite Negative (NEGATIVE) 08/08/16 18:55 Urine Bilirubin Negative (NEGATIVE) 08/08/16 18:55 Urine Urobilinogen Negative E.U./dl (0.2-1.0) 08/08/16 18:55 Ur Leukocyte Esterase Negative (NEGATIVE) 08/08/16 18:55 RPR Titer Nonreactive (NONREACTIVE) 08/06/16 11:15 labs noted - Treatment Hospital Course: Detox Protocol Followed, Detoxed Safely, Responded well, Discharged Condition Good, Rehab Referral Accepted Patient has Accepted a Rehab Referral to: AA 12 step meeting - Medication Discharge Medications: Ambulatory Orders Quetiapine Fumarate [Seroquel] 100 mg PO HS #30 tablet 08/06/16 - Diagnosis (1) Alcohol dependence with uncomplicated withdrawal Current Visit: Yes Status: Acute (2) Insomnia Current Visit: Yes Status: Acute (3) Alcohol-induced mood disorder Current Visit: Yes Status: Acute (4) Alcohol-induced sleep disorder Current Visit: Yes Status: Acute - AMA Did Patient Leave Against Medical Advice: No
== END 2016-08-10 09:00 | disposition home or self-care (01) | DRG 775 ==
LOC: YASAS 04:30 → Y3N 04:53
PROVIDERS: ADMIT Internal Medicine Addiction Medicine; ATTEND Internal Medicine
PROC: HZ2ZZZZ Detoxification Services for Substance Abuse Treatment (ICD-10-PCS; principal; 2016-08-06)
DX: F10.230 Alcohol dependence with withdrawal, uncomplicated (principal); F10.24 Alcohol dependence with alcohol-induced mood disorder; F10.282 Alcohol dependence with alcohol-induced sleep disorder; F17.210 Nicotine dependence, cigarettes, uncomplicated; F19.24 Other psychoactive substance dependence with psychoactive substance-induced mood disorder; G47.00 Insomnia, unspecified; R00.0 Tachycardia, unspecified
CPT/HCPCS: 36415; 80053; 81003; 85027; 86593; 93005; 93010

== ENCOUNTER 2016-11-06 10:30 | Emergency (ER) | payer OTHER ==
[2016-11-06 10:34] VITALS: BP 127/61; PULSE 87; TEMP 98.2; BMI 28.2
--- NOTE | 2016-11-06 11:22 | PDOC ---
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 No numbness or tingling to foot, has full range of motion. Occurred: reports: just prior to arrival Severity: reports: mild Pain Location: reports: lower extremity (left leg) Method of Injury: Yes: unknown Loss of Consciousness: no loss of consciousness Associated Symptoms (Fall): denies symptoms Past History - Travel Traveled outside of the country in the last 30 days: No Close contact w/someone who was outside of country & ill: No - Past Medical History Allergies/Adverse Reactions: Allergies Allergy/AdvReac Type Severity Reaction Status Date / Time No Known Allergies Allergy Verified 11/06/16 10:32 Home Medications: Ambulatory Orders NK [No Known Home Medication] 11/06/16 Anemia: No Asthma: No Cancer: No Cardiac Disorders: No CVA: No COPD: No CHF: No Diabetes: No GI Disorders: No Disorders: No HTN: No Hypercholesterolemia: No Kidney Stones: No Liver Disease: No Suicide Attempt (Hx): No Seizures: No Thyroid Disease: No - Surgical History Abdominal Surgery: No Appendectomy: No Cardiac Surgery: No Cholecystectomy: No Lung Surgery: No Neurologic Surgery: No Orthopedic Surgery: Yes (L clavicle fx sx IN 2OO6) - Reproductive History Testicular Surgery: No - Immunization History Immunization Up to Date: Yes - Psycho/Social/Smoking Cessation Hx Anxiety: No Suicidal Ideation: No Smoking History: Current every day smoker Have you smoked in the past 12 months: Yes Number of Cigarettes Smoked Daily: 10 If you are a former smoker, when did you quit?: 2014 Information on smoking cessation initiated: No 'Breaking Loose' booklet given: 08/06/16 Hx Alcohol Use: No Drug/Substance Use Hx: No Substance Use Type: None Hx Substance Use Treatment: Yes ([facility]) Trauma Specific PMHX - Complaint Specific PMHX Arthritis: No Review of Systems - Review of Systems Able to Perform ROS?: Yes Is the patient limited Finnish proficient: Yes Constitutional: Yes: See HPI. No: Symptoms Reported HEENTM: No: Symptoms Reported Musculoskeletal: Yes: Symptoms Reported, See HPI Integumentary: Yes: See HPI. No: Symptoms Reported Neurological: No: Symptoms reported All Other Systems: Reviewed and Negative *Physical Exam - Vital Signs Last Vital Signs Temp Pulse Resp BP Pulse Ox 98.2 F 87 18 127/61 100 11/06/16 10:32 11/06/16 10:32 11/06/16 10:32 11/06/16 10:32 11/06/16 10:32 - Physical Exam General Appearance: Yes: Nourished, Appropriately Dressed, Apparent Distress HEENT: positive: WILLEM, Normal ENT Inspection, TMs Normal, Pharynx Normal Neck: negative: Tender Musculoskeletal: positive: Normal Inspection. negative: Decreased Range of Motion Extremity: positive: Normal Capillary Refill, Normal Inspection, Normal Range of Motion Integumentary: positive: Normal Color, Other (5cm lac to anterior medial aspect of left tibia , full range of motion to foot, neurovascular intact to foot) Neurologic: positive: html developer II-XII NML intact, Fully Oriented, Alert, Normal Mood/ Affect, Normal Response, Motor Strength 5/5 Procedures - Laceration/Wound Repair Left Anterior Leg Wound Length: 2.6 to 5.0 cm Wound Explored: clean Wound's Depth, Shape: superficial, linear Irrigated w/ Saline: Yes Betadine Prep: Yes Anesthesia: 1% Lidocaine Wound Repaired With: Sutures Suture Size/Type: 4:0 Number of Sutures: 13 (verticle mattress) Layer Closure: No Sterile Dressing Applied: Yes Progress Note - Progress Note Progress Note: Leg laceration repaired tetanus/diphtheria/pertussis booster updated today *DC/Admit/Observation/Transfer Diagnosis at time of Disposition: Laceration - Discharge Dispostion Disposition: HOME Condition at time of disposition: Stable Admit: No - Patient Instructions Printed Discharge Instructions: DI for Laceration Repair Additional Instructions: Rest, elevate, avoid strenuous activity or heavy lifting until sutures are removed Leave dressing on for the next 24 hours, Then may remove dressing gently and wash area with soap and water. Reapply bacitracin ointment and dressing daily for the next 5 days On day #6 keep the wound protected and cover as needed until sutures are removed allowing wound to start to dry May use Tylenol or Motrin for pain relief Suture removal in : 12 -14 Days Tetanus/Diphtheria/pertussis booster updated today - Post Discharge Activity Work/School Note: Back to Work
[2016-11-06] MEDS ORDERED: DIPHTH,PERTUSS(ACELL),TET 0.5 ML DISP.SYRIN IM ONE (11:59)
== END 2016-11-06 12:10 | disposition home or self-care (01) ==
LOC: JERFT 10:30
PROC: 0HQLXZZ Repair Left Lower Leg Skin, External Approach (ICD-10-PCS; principal; 2016-11-06)
DX: S81.812A Laceration without foreign body, left lower leg, initial encounter (principal); W22.8XXA Striking against or struck by other objects, initial encounter; Y93.89 Activity, other specified; Y92.9 Unspecified place or not applicable; Y99.0 Civilian activity done for income or pay; F17.210 Nicotine dependence, cigarettes, uncomplicated
CPT/HCPCS: 90715; 99281-25

== ENCOUNTER 2017-02-21 18:18 | Inpatient (IN) | payer OTHER ==
[2017-02-21 19:59] VITALS: BMI 25.2
--- NOTE | 2017-02-21 20:42 | HP ---
CIWA Score - CIWA Score Nausea/Vomitin Muscle Tremors: 4-Moderate,w/Arms Extend Anxiety: 4-Mod. Anxious/Guarded Agitation: 4-Moderately Restless Paroxysmal Sweats: 3 Orientation: 1-Uncertain about Date Tacttile Disturbances: 3-Moderate Itch/Numb/Burn Auditory Disturbances: 3-Moderate Harsh/Frighten Visual Disturbances: 3-Moderate Sensitivity Headache: 0-None Present CIWA-Ar Total Score: 28 Admission ROS BHS - HPI Chief Complaint: C/O WITHDRAWAL SX'S FROM ETOH. SEEKING DETOX SERVICES Allergies/Adverse Reactions: Allergies Allergy/AdvReac Type Severity Reaction Status Date / Time No Known Allergies Allergy Verified 02/21/17 19:51 History of Present Illness: 41 Y.O. MALE WITH ALCOHOLISM HERE FOR DETOX TXMENT. CLIENT DENIES ANY RECENT DETOX. HE IS KNOWN TO THIS SERVICE LAST HERE 07/2016. SELF REFERRED. DENIES LEGALS. 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 RELAPSING 1 WEEK AGO. Exam Limitations: No Limitations - Ebola screening Have you traveled outside of the country in the last 21 days: No Have you had contact with anyone from an Ebola affected area: No Have you been sick,other than usual withdrawal symptoms: No Do you have a fever: No - Review of Systems Constitutional: Chills, Loss of Appetite, Night Sweats EENT: reports: No Symptoms Reported Respiratory: reports: No Symptoms reported Cardiac: reports: Lightheadedness, Palpitations GI: reports: Nausea, Poor Appetite : reports: No Symptoms Reported Musculoskeletal: reports: No Symptoms Reported Integumentary: reports: No Symptoms Reported Neuro: reports: Seizure (R/T ETOH WITHDRAWAL) Endocrine: reports: No Symptoms Reported Hematology: reports: No Symptoms Reported Psychiatric: reports: Anxious Other Systems: Reviewed and Negative Patient History - Patient Medical History Hx Anemia: No Hx Asthma: No Hx Chronic Obstructive Pulmonary Disease (COPD): No Hx Cancer: No Hx Cardiac Disorders: No Hx Congestive Heart Failure: No Hx Hypertension: No Hx Hypercholesterolemia: No Hx Pacemaker: No HX Cerebrovascular Accident: No Hx Seizures: No Hx Diabetes: No Hx Gastrointestinal Disorders: No Hx Liver Disease: No Hx Genitourinary Disorders: No Hx Sexually Transmitted Disorders: No Hx Renal Disease (ESRD): No Hx Thyroid Disease: No Hx Human Immunodeficiency Virus (HIV): No Hx Hepatitis C: No Hx Depression: No Hx Suicide Attempt: No Hx Bipolar Disorder: No Hx Schizophrenia: No Other Medical History: DENIES - Patient Surgical History Past Surgical History: Yes Hx Neurologic Surgery: No Hx Cataract Extraction: No Hx Cardiac Surgery: No Hx Lung Surgery: No Hx Breast Surgery: No Hx Breast Biopsy: No Hx Abdominal Surgery: No Hx Appendectomy: No Hx Cholecystectomy: No Hx Genitourinary Surgery: No Hx Section: No Hx Orthopedic Surgery: Yes (L clavicle fx sx IN 2OO6) Anesthesia Reaction: No - PPD History Previous Implant?: Yes Documented Results: Negative w/proof Implanted On Prior [facility] Admission?: Yes Date: 09/05/15 Results: O MM PPD to be Administered?: Yes - Smoking Cessation Smoking history: Current every day smoker Have you smoked in the past 12 months: Yes Aproximately how many cigarettes per day: 10 Cigars Per Day: 0 Hx Chewing Tobacco Use: No Initiated information on smoking cessation: Yes 'Breaking Loose' booklet given: 02/21/17 - Substance & Tx. History Hx Alcohol Use: Yes Hx Substance Use: Yes Substance Use Type: Alcohol Hx Substance Use Treatment: Yes ([facility]) - Substances Abused Alcohol Route: Oral Frequency: Daily Amount used: liquor- 3 pints Age of first use: 14 Date of Last Use: 02/21/17 Family Disease History - Family Disease History Family Disease History: Diabetes: Father (HTN), Heart Disease: Father, CA: Grandparent, Other: Sister (pain killer) Admission Physical Exam S - Vital Signs Vital Signs: Vital Signs - 24 hr 02/21/17 19:25 Temperature 97.2 F L Pulse Rate 139 H Respiratory 20 Rate Blood Pressure 146/88 - Physical General Appearance: Yes: Appropriately Dressed, Moderate Distress, Intoxicated, Anxious HEENTM: Yes: Normocephalic, Normal Voice, WILLEM, Pharynx Normal, Other ([facility]) Respiratory: Yes: Chest Non-Tender, Lungs Clear, Normal Breath Sounds, No Respiratory Distress, No Accessory Muscle Use Neck: Yes: No masses,lesions,Nodules, Supple, Trachea in good position Breast: Yes: Breast Exam Deferred Cardiology: Yes: Regular Rhythm, S1, S2, Tachycardia Abdominal: Yes: Normal Bowel Sounds, Non Tender, Soft Genitourinary: Yes: Within Normal Limits Back: Yes: Normal Inspection Musculoskeletal: Yes: full range of Motion, Gait Steady Extremities: Yes: Normal Capillary Refill, Normal Range of Motion, Non-Tender, Tremors Neurological: Yes: locator II-XII NML intact, Fully Oriented, Alert, Motor Strength 5/5 Integumentary: Yes: Warm, Moist, Other (FLUSHED FACE) Lymphatic: Yes: Within Normal Limits - Diagnostic (1) Alcohol dependence with uncomplicated withdrawal Current Visit: No Status: Chronic (2) Nicotine dependence Current Visit: No Status: Chronic Qualifiers: Nicotine product type: cigarettes Substance use status: uncomplicated Qualified Code(s): F17.210 - Nicotine dependence, cigarettes, uncomplicated Comment: . Cleared for Admission [facility] - Detox or Rehab [facility] Level of Care: Medically Managed Detox Regimen/Protocol: Librium [facility] Breath Alcohol Content Breath Alcohol Content: 0.291 Urine Drug Screen - Results Drug Screen Negative: No Urine Drug Screen Results: TCA-Tricyclic Antidepress
[2017-02-21] MEDS ORDERED: guaiFENesin/D-METHORPHAN HB 10 ML UNIT-DOSE CUPS PO PRN (20:56)
[2017-02-21] MEDS ORDERED: MAGNESIUM CITRATE 300 ML BOTTLE PO PRN (20:56)
[2017-02-21] MEDS ORDERED: MAGNESIUM HYDROX 2400MG/30ML ORAL SUSPENSION 30 ML CUP PO PRN (20:56)
[2017-02-21] MEDS ORDERED: hydrOXYzine PAMOATE 50 MG CAPSULE (FP) PO PRN (20:56)
[2017-02-21] MEDS ORDERED: chlordiazePOXIDE HCL 25 MG CAPSULE PO ONE (20:56)
[2017-02-21] MEDS ORDERED: IBUPROFEN 400 MG TABLET (FP) PO PRN (20:56)
[2017-02-21] MEDS ORDERED: MENTHOL/PHENOL 1 EACH UD MM PRN (20:56)
[2017-02-21] MEDS ORDERED: NICOTINE POLACRILEX 4 MG GUM BC PRN (20:56)
[2017-02-21] MEDS ORDERED: P-EPHED 60MG/TRIPROLIDI 2.5MG TABLET PO PRN (20:56)
[2017-02-21] MEDS ORDERED: SODIUM CHLORIDE 1,000 ML IV SCH (21:15)
[2017-02-21] MEDS: chlordiazePOXIDE HCL 25 MG CAPSULE PO SCH ×2 (21:38→23:04)
[2017-02-21] MEDS: THIAMINE HCL 100 MG TABLET (FP) PO SCH (21:39)
[2017-02-21] MEDS: chlordiazePOXIDE HCL 25 MG CAPSULE PO PRN (23:05)
[2017-02-21] MEDS: MAG HYDROX/AL HYDROX/SIMETH 30 ML UNIT-DOSE CUP PO PRN (23:24)
[2017-02-22] MEDS ORDERED: TRIMETHOBENZAMIDE HCL 200MG/2ML INJ IM PRN (00:43)
[2017-02-22] MEDS: chlordiazePOXIDE HCL 25 MG CAPSULE PO PRN ×2 (02:05→07:16)
[2017-02-22] MEDS: chlordiazePOXIDE HCL 25 MG CAPSULE PO SCH ×4 (05:11→22:30)
[2017-02-22 10:01] LABS: MCH 31.4 pg (25.7-33.7); MCHC 34.5 g/dl (32.0-35.9); MEAN CELL VOLUME 90.9 fl (80-96); MEAN PLT VOLUME 8.9 fl (7.5-11.1); PLATELET COUNT 240 K/MM3 (134-434); RDW 14.3 % (11.9-15.9); WHITE BLOOD COUNT 8.1 K/mm3 (4.0-10.0)
--- NOTE | 2017-02-22 10:19 | EKG ---
Test Reason : Blood Pressure : / mmHG Vent. Rate : 116 BPM Atrial Rate : 116 BPM P-R Int : 180 ms QRS Dur : 092 ms QT Int : 326 ms P-R-T Axes : 061 058 043 degrees QTc Int : 453 ms SINUS TACHYCARDIA OTHERWISE NORMAL ECG WHEN COMPARED WITH ECG OF 06-AUG-2016 04:30, NO SIGNIFICANT CHANGE WAS FOUND Confirmed by GALINDO KHAN MD ([id number]) on 02/22/2017 10:19:01 AM Referred By: Confirmed By:GALINDO KHAN MD
[2017-02-22 10:27] LABS: ALBUMIN 3.9 g/dl (3.4-5.0); ALK PHOS 70 U/L (45-117); ANION GAP 9 (8-16); BILIRUBIN,TOTAL 0.8 mg/dL (0.2-1.0); CALCIUM 8.6 mg/dL (8.5-10.1); CO2 30 mmol/L (21-32); CREATININE 0.8 mg/dL (0.7-1.3); GLUCOSE,RANDOM 94 mg/dL (74-106); SGOT/AST 52 U/L (15-37); SGPT/ALT 63 U/L (12-78); TOT PROT 7.3 g/dl (6.4-8.2)
[2017-02-22] MEDS: PRENATAL VITAMINS W/ FOLIC ACID TABLET (FP) PO SCH (10:30)
[2017-02-22] MEDS: NICOTINE 14 MG/24 HOURS TOPICAL PATCH TD SCH (10:43)
[2017-02-22 11:19] LABS: HIV 1 & 2 AB NEGATIVE; HIV 1 AGp24 NEGATIVE
--- NOTE | 2017-02-22 11:36 | PN ---
S CIWA - CIWA Score Nausea/Vomitin Muscle Tremors: 3 Anxiety: 3 Agitation: 3 Paroxysmal Sweats: 3 Orientation: 0-Oriented Tacttile Disturbances: 1-Very Mild Itch/Numbness Auditory Disturbances: 0-None Visual Disturbances: 0-None Headache: 1-Very Mild CIWA-Ar Total Score: 17 S Progress Note (SOAP) Subjective: nausea, sweats, interrupted sleep, anxiety, tremors Objective: 02/22/17 13:25 Vital Signs - 8 hr 02/22/17 02/22/17 02/22/17 05:30 06:00 10:00 Temperature 97.9 F 98.4 F Pulse Rate 118 H 118 H 128 H Respiratory 20 20 18 Rate Blood Pressure 131/69 110/86 Laboratory Tests 02/22/17 02/22/17 02/22/17 07:00 07:00 07:00 WBC 8.1 RBC 4.82 Hgb 15.1 D Hct 43.8 MCV 90.9 MCH 31.4 MCHC 34.5 RDW 14.3 Plt Count 240 MPV 8.9 Sodium 135 L Potassium 3.5 Chloride 96 L Carbon Dioxide 30 Anion Gap 9 BUN 8 D Creatinine 0.8 D Creat Clearance w eGFR > 60 Random Glucose 94 Calcium 8.6 Total Bilirubin 0.8 AST 52 H D ALT 63 D Alkaline Phosphatase 70 Total Protein 7.3 Albumin 3.9 RPR Titer HIV 1&2 Antibody Screen Negative HIV P24 Antigen Negative 02/22/17 07:00 WBC RBC Hgb Hct MCV MCH MCHC RDW Plt Count MPV Sodium Potassium Chloride Carbon Dioxide Anion Gap BUN Creatinine Creat Clearance w eGFR Random Glucose Calcium Total Bilirubin AST ALT Alkaline Phosphatase Total Protein Albumin RPR Titer Nonreactive HIV 1&2 Antibody Screen HIV P24 Antigen tachycardia, elevated LFTS Assessment: 02/22/17 13:26 withdrawal sx - prn libirum, fluids, encourae ambulation clonidine
[2017-02-22] MEDS ORDERED: chlordiazePOXIDE HCL 25 MG CAPSULE PO ONE (13:48)
[2017-02-22 15:58] LABS: PH,URINE 7.5 (5.0-8.0); URINE APPEARANCE CLEAR; URINE BILIRUBIN NEGATIVE (NEGATIVE); URINE BLOOD NEGATIVE (NEGATIVE); URINE COLOR ORANGE; URINE GLUCOSE (UA) NEGATIVE (NEGATIVE); URINE KETONE TRACE (NEGATIVE); URINE NITRITE NEGATIVE (NEGATIVE); URINE UROBILINOGEN 0.2 mg/dL (0.2-1.0)
[2017-02-22 16:06] LABS: URINE PROTEIN 2+ (NEGATIVE)
--- NOTE | 2017-02-22 16:36 | CONSULT ---
[facility] Psychiatric Consult - Data Date of interview: 02/22/17 Admission source: [facility] Identifying data: Another admission to [facility] for this 41 y/o male seeking detox treatment on for alcohol dependence.Patient is single without children,domiciled and employed. Substance Abuse History: Confirmed by patient in this session.Smoking history: Current every day smoker. Have you smoked in the past 12 months: Yes. Aproximately how many cigarettes per day: 10. Cigars Per Day: 0. Hx Chewing Tobacco Use: No. Initiated information on smoking cessation: Yes. 'Breaking Loose' booklet given: 02/21/17. - Substance & Tx. History. Hx Alcohol Use: Yes. Hx Substance Use: Yes. Substance Use Type: Alcohol. Hx Substance Use Treatment: Yes ([facility]). - Substances Abused. Alcohol. Route: Oral. Frequency: Daily. Amount used: liquor- 3 pints. Age of first use: 14. Date of Last Use: 02/21/17 Medical History: Patient endorses good general health.Noted past history of orthosurgery for fracture of left clavicel (2005). Psychiatric History: Patient denies. Physical/Sexual Abuse/Trauma History: No reported history of abuse. Additional Comment: Urine Drug Screen Results: TCA-Tricyclic Antidepressant, Noted. Mental Status Exam - Mental Status Exam Alert and Oriented to: Time, Place, Person Cognitive Function: Good Patient Appearance: Well Groomed Mood: Hopeful, Euthymic Affect: Appropriate, Normal Range Patient Behavior: Fatigued, Appropriate, Cooperative Speech Pattern: Clear, Appropriate Voice Loudness: Normal Thought Process: Intact, Goal Oriented Thought Disorder: Not Present Hallucinations: Denies Suicidal Ideation: Denies Homicidal Ideation: Denies Insight/Judgement: Poor Sleep: Poorly, Difficulty falling asleep Appetite: Good Muscle strength/Tone: Normal Gait/Station: Normal Psychiatric Findings - Problem List ([place] 1, 2,3) (1) Alcohol dependence with uncomplicated withdrawal Current Visit: Yes Status: Acute (2) Nicotine dependence Current Visit: Yes Status: Acute Qualifiers: Nicotine product type: cigarettes Substance use status: uncomplicated Qualified Code(s): F17.210 - Nicotine dependence, cigarettes, uncomplicated Comment: . (3) Insomnia Current Visit: Yes Status: Acute Comment: . - Initial Treatment Plan Initial Treatment Plan: Psychoeducation.Sleep hygiene recommended.Detoxification in effect.Seroquel 100 mg po hs.Ordered.Side effects/ benefits are discussed with patient who reports past history of adequate response to that drug.Consent (verbal) given for inclusion of seroquel in this current regimen.Observation.Previous records reviewed : confirmed use of seroquel in past admissions to [facility].
[2017-02-22 20:09] LABS: URINE LEUK ESTERASE Negative (NEGATIVE)
[2017-02-22 21:14] LABS: URINE BACTERIA RARE /hpf (NONE SEEN); URINE HYALINE CAST 14 /lpf; URINE MUCUS MODERATE; URINE RBC 1 /hpf (0-3); URINE WBC 1 /hpf (3-5)
[2017-02-22] MEDS: THIAMINE HCL 100 MG TABLET (FP) PO SCH (22:30)
[2017-02-22] MEDS: QUEtiapine FUMARATE 100 MG TABLET (FP) PO SCH (22:30)
[2017-02-23] MEDS: chlordiazePOXIDE HCL 25 MG CAPSULE PO SCH ×3 (06:11→17:36)
[2017-02-23] MEDS: PRENATAL VITAMINS W/ FOLIC ACID TABLET (FP) PO SCH (10:30)
[2017-02-23] MEDS: NICOTINE 14 MG/24 HOURS TOPICAL PATCH TD SCH (10:30)
[2017-02-23] MEDS: LOPERAMIDE HCL 2 MG CAPSULE PO PRN ×2 (10:51→17:15)
--- NOTE | 2017-02-23 12:02 | PN ---
[facility] CIWA - CIWA Score Nausea/Vomitin-No Nausea/No Vomiting Muscle Tremors: 4-Moderate,w/Arms Extend Anxiety: 4-Mod. Anxious/Guarded Agitation: 4-Moderately Restless Paroxysmal Sweats: 3 Orientation: 0-Oriented Tacttile Disturbances: 0-None Auditory Disturbances: 0-None Visual Disturbances: 0-None Headache: 0-None Present CIWA-Ar Total Score: 15 BHS Progress Note (SOAP) Subjective: agitation sweats irritable shakes diarrhea Objective: 02/23/17 12:00 Vital Signs Temperature 97.3 F L 02/23/17 10:00 Pulse Rate 127 H 02/23/17 10:00 Respiratory Rate 18 02/23/17 10:00 Blood Pressure 118/75 02/23/17 10:00 O2 Sat by Pulse Oximetry (%) Laboratory Tests 02/22/17 02/22/17 02/22/17 07:00 07:00 07:00 WBC 8.1 RBC 4.82 Hgb 15.1 D Hct 43.8 MCV 90.9 MCH 31.4 MCHC 34.5 RDW 14.3 Plt Count 240 MPV 8.9 Sodium 135 L Potassium 3.5 Chloride 96 L Carbon Dioxide 30 Anion Gap 9 BUN 8 D Creatinine 0.8 D Creat Clearance w eGFR > 60 Random Glucose 94 Calcium 8.6 Total Bilirubin 0.8 AST 52 H D ALT 63 D Alkaline Phosphatase 70 Total Protein 7.3 Albumin 3.9 Urine Color Urine Appearance Urine pH Ur Specific [place] Urine Protein Urine Glucose (UA) Urine Ketones Urine Blood Urine Nitrite Urine Bilirubin Urine Urobilinogen Ur Leukocyte Esterase Urine WBC (Auto) Urine RBC (Auto) Ur Epithelial Cells Urine Bacteria Hyaline Casts Urine Mucus RPR Titer HIV 1&2 Antibody Screen Negative HIV P24 Antigen Negative 02/22/17 02/22/17 07:00 11:25 WBC RBC Hgb Hct MCV MCH MCHC RDW Plt Count MPV Sodium Potassium Chloride Carbon Dioxide Anion Gap BUN Creatinine Creat Clearance w eGFR Random Glucose Calcium Total Bilirubin AST ALT Alkaline Phosphatase Total Protein Albumin Urine Color [place] Urine Appearance Clear Urine pH 7.5 Ur Specific [place] 1.020 Urine Protein 2+ H Urine Glucose (UA) Negative Urine Ketones Trace H Urine Blood Negative Urine Nitrite Negative Urine Bilirubin Negative Urine Urobilinogen 0.2 Ur Leukocyte Esterase Negative Urine WBC (Auto) 1 Urine RBC (Auto) 1 Ur Epithelial Cells Rare Urine Bacteria Rare Hyaline Casts 14 Urine Mucus Moderate RPR Titer Nonreactive HIV 1&2 Antibody Screen HIV P24 Antigen aaox3 ambulating no acute distress tachycardic will continue to monitor HR Assessment: 02/23/17 12:00 withdrawal sx Plan: continue detox increase fluids immodium prn denies any chest pain
[2017-02-23] MEDS: chlordiazePOXIDE HCL 25 MG CAPSULE PO PRN (14:38)
[2017-02-23] MEDS: MAG HYDROX/AL HYDROX/SIMETH 30 ML UNIT-DOSE CUP PO PRN (15:21)
[2017-02-23] MEDS: QUEtiapine FUMARATE 100 MG TABLET (FP) PO SCH (22:30)
[2017-02-23] MEDS: chlordiazePOXIDE 5 MG CAPSULE PO SCH (22:30)
[2017-02-23] MEDS: THIAMINE HCL 100 MG TABLET (FP) PO SCH (22:32)
[2017-02-24] MEDS: chlordiazePOXIDE 5 MG CAPSULE PO SCH ×3 (05:46→17:21)
[2017-02-24] MEDS: PRENATAL VITAMINS W/ FOLIC ACID TABLET (FP) PO SCH (10:52)
[2017-02-24] MEDS: NICOTINE 14 MG/24 HOURS TOPICAL PATCH TD SCH (10:53)
[2017-02-24] MEDS: ACETAMINOPHEN 325 MG TABLET (FP) PO PRN (10:54)
--- NOTE | 2017-02-24 12:04 | PN ---
[facility] Progress Note (SOAP) Subjective: anxiety sweats interrupted sleep I want to leave early in the morning I want to speak to psych for rx for seroquel Objective: 02/24/17 12:03 Vital Signs Temperature 97.2 F L 02/24/17 09:25 Pulse Rate 103 H 02/24/17 09:25 Respiratory Rate 20 02/24/17 09:25 Blood Pressure 135/73 02/24/17 09:25 O2 Sat by Pulse Oximetry (%) aaox3 ambulating no acute distress Assessment: 02/24/17 12:04 withdrawal sx Plan: continue detox increase fluids psych ordered
[2017-02-24] MEDS: chlordiazePOXIDE HCL 25 MG CAPSULE PO PRN (13:51)
[2017-02-24] MEDS: MAG HYDROX/AL HYDROX/SIMETH 30 ML UNIT-DOSE CUP PO PRN (15:41)
[2017-02-24] MEDS ORDERED: RANITIDINE HCL 150 MG TABLET (FP) PO ONE (20:34)
[2017-02-24] MEDS: chlordiazePOXIDE HCL 10 MG CAPSULE PO SCH (22:38)
[2017-02-24] MEDS: THIAMINE HCL 100 MG TABLET (FP) PO SCH (22:38)
[2017-02-24] MEDS: QUEtiapine FUMARATE 100 MG TABLET (FP) PO SCH (22:39)
[2017-02-25] MEDS: chlordiazePOXIDE HCL 10 MG CAPSULE PO SCH (05:28)
[2017-02-25] MEDS: ACETAMINOPHEN 325 MG TABLET (FP) PO PRN (05:29)
[2017-02-25 06:31] VITALS: BP 116/63; PULSE 76; TEMP 97
--- NOTE | 2017-02-25 09:33 | DS ---
[facility] Detox Discharge Summary Admission Date: 02/21/17 Discharge Date: 02/25/17 - History Present History: Alcohol Dependence Pertinent Past History: Insomnia - Physical Exam Results Vital Signs: Vital Signs Temperature 97 F L 02/25/17 06:31 Pulse Rate 76 02/25/17 06:31 Respiratory Rate 18 02/25/17 06:31 Blood Pressure 116/63 02/25/17 06:31 O2 Sat by Pulse Oximetry (%) Pertinent Admission Physical Exam Findings: Withdrawal sx. Laboratory Last Values WBC 8.1 K/mm3 (4.0-10.0) 02/22/17 07:00 RBC 4.82 M/mm3 (4.00-5.60) 02/22/17 07:00 Hgb 15.1 GM/dL (11.7-16.9) D 02/22/17 07:00 Hct 43.8 % (35.4-49) 02/22/17 07:00 MCV 90.9 fl (80-96) 02/22/17 07:00 MCH 31.4 pg (25.7-33.7) 02/22/17 07:00 MCHC 34.5 g/dl (32.0-35.9) 02/22/17 07:00 RDW 14.3 % (11.9-15.9) 02/22/17 07:00 Plt Count 240 K/MM3 (134-434) 02/22/17 07:00 MPV 8.9 fl (7.5-11.1) 02/22/17 07:00 Sodium 135 mmol/L (136-145) L 02/22/17 07:00 Potassium 3.5 mmol/L (3.5-5.1) 02/22/17 07:00 Chloride 96 mmol/L (98-107) L 02/22/17 07:00 Carbon Dioxide 30 mmol/L (21-32) 02/22/17 07:00 Anion Gap 9 (8-16) 02/22/17 07:00 BUN 8 mg/dL (7-18) D 02/22/17 07:00 Creatinine 0.8 mg/dL (0.7-1.3) D 02/22/17 07:00 Creat Clearance w eGFR > 60 (>60) 02/22/17 07:00 Random Glucose 94 mg/dL (74-106) 02/22/17 07:00 Calcium 8.6 mg/dL (8.5-10.1) 02/22/17 07:00 Total Bilirubin 0.8 mg/dL (0.2-1.0) 02/22/17 07:00 AST 52 U/L (15-37) H D 02/22/17 07:00 ALT 63 U/L (12-78) D 02/22/17 07:00 Alkaline Phosphatase 70 U/L (45-117) 02/22/17 07:00 Total Protein 7.3 g/dl (6.4-8.2) 02/22/17 07:00 Albumin 3.9 g/dl (3.4-5.0) 02/22/17 07:00 Urine Color [place] 02/22/17 11:25 Urine Appearance Clear 02/22/17 11:25 Urine pH 7.5 (5.0-8.0) 02/22/17 11:25 Ur Specific [place] 1.020 (1.001-1.035) 02/22/17 11:25 Urine Protein 2+ (NEGATIVE) H 02/22/17 11:25 Urine Glucose (UA) Negative (NEGATIVE) 02/22/17 11:25 Urine Ketones Trace (NEGATIVE) H 02/22/17 11:25 Urine Blood Negative (NEGATIVE) 02/22/17 11:25 Urine Nitrite Negative (NEGATIVE) 02/22/17 11:25 Urine Bilirubin Negative (NEGATIVE) 02/22/17 11:25 Urine Urobilinogen 0.2 mg/dL (0.2-1.0) 02/22/17 11:25 Ur Leukocyte Esterase Negative (NEGATIVE) 02/22/17 11:25 Urine WBC (Auto) 1 /hpf (3-5) 02/22/17 11:25 Urine RBC (Auto) 1 /hpf (0-3) 02/22/17 11:25 Ur Epithelial Cells Rare /HPF (FEW) 02/22/17 11:25 Urine Bacteria Rare /hpf (NONE SEEN) 02/22/17 11:25 Hyaline Casts 14 /lpf 02/22/17 11:25 Urine Mucus Moderate 02/22/17 11:25 RPR Titer Nonreactive (NONREACTIVE) 02/22/17 07:00 HIV 1&2 Antibody Screen Negative 02/22/17 07:00 HIV P24 Antigen Negative 02/22/17 07:00 labs noted - Treatment Hospital Course: Detox Protocol Followed, Detoxed Safely, Responded well, Discharged Condition Good Patient has Accepted a Rehab Referral to: AA meetings - Medication Discharge Medications: Ambulatory Orders Quetiapine Fumarate [Seroquel] 100 mg PO HS #30 tablet 02/22/17 Ranitidine [Zantac -] 150 mg PO DAILY 02/24/17 - Diagnosis (1) Alcohol dependence with uncomplicated withdrawal Status: Acute (2) Alcohol-induced mood disorder Status: Acute (3) Alcohol-induced sleep disorder Status: Acute (4) Insomnia Status: Acute Qualifiers: Insomnia type: alcohol-induced Qualified Code(s): F10.982 - Alcohol use, unspecified with alcohol-induced sleep disorder (5) Nicotine dependence Status: Acute Qualifiers: Nicotine product type: cigarettes Substance use status: uncomplicated Qualified Code(s): F17.210 - Nicotine dependence, cigarettes, uncomplicated - AMA Did Patient Leave Against Medical Advice: No
== END 2017-02-25 06:50 | disposition home or self-care (01) | DRG 775 ==
LOC: YASAS 18:18 → Y6N 20:21
PROVIDERS: ADMIT Internal Medicine; ATTEND Internal Medicine
PROC: HZ2ZZZZ Detoxification Services for Substance Abuse Treatment (ICD-10-PCS; principal; 2017-02-21)
DX: F10.230 Alcohol dependence with withdrawal, uncomplicated (principal); F17.210 Nicotine dependence, cigarettes, uncomplicated; F10.24 Alcohol dependence with alcohol-induced mood disorder; F10.282 Alcohol dependence with alcohol-induced sleep disorder; G47.00 Insomnia, unspecified
CPT/HCPCS: 36415; 80053; 81003; 81015; 85027; 86593; 87389; 93005; 93010

== ENCOUNTER 2019-04-30 12:06 | Emergency (ER) | payer OTHER ==
[2019-04-30 12:14] VITALS: BP 160/80; PULSE 90; TEMP 98.7; BMI 25.7
[2019-04-30] MEDS ORDERED: DIPHTH,PERTUSS(ACELL),TET 0.5 ML DISP.SYRIN IM ONE ×2 (13:34→14:19)
[2019-04-30] MEDS ORDERED: HIV POST EXPOSURE PROPHYLAXIS KIT NR ONE (13:36)
--- NOTE | 2019-04-30 13:40 | PDOC ---
History of Present Illness - General Chief Complaint: Non EmpBld/Body Flud Exposure Stated Complaint: NEEDLE STICK AT WORK Time Seen by Provider: 04/30/19 13:16 History Source: Patient Exam Limitations: No Limitations Past History - Travel Traveled outside of the country in the last 30 days: No Close contact w/someone who was outside of country & ill: No - Past Medical History Allergies/Adverse Reactions: Allergies Allergy/AdvReac Type Severity Reaction Status Date / Time No Known Allergies Allergy Verified 04/30/19 12:11 Home Medications: Ambulatory Orders Quetiapine Fumarate [Seroquel] 100 mg PO HS #30 tablet 02/22/17 Ranitidine [Zantac -] 150 mg PO DAILY 02/24/17 Ondansetron [Zofran Odt -] 4 mg SL TID #10 od.tablet 04/30/19 Raltegravir [Isentress -] 400 mg PO BID #46 tab 04/30/19 Anemia: No Asthma: No Cancer: No Cardiac Disorders: No CVA: No COPD: No CHF: No Diabetes: No GI Disorders: No Disorders: No HTN: No Hypercholesterolemia: No Kidney Stones: No Liver Disease: No Seizures: No Thyroid Disease: No - Surgical History Abdominal Surgery: No Appendectomy: No Cardiac Surgery: No Cholecystectomy: No Lung Surgery: No Neurologic Surgery: No Orthopedic Surgery: Yes (L clavicle fx sx IN 2OO6) - Reproductive History Testicular Surgery: No - Immunization History Immunization Up to Date: Yes - Psycho Social/Smoking Cessation Hx Smoking History: Current every day smoker Have you smoked in the past 12 months: Yes Number of Cigarettes Smoked Daily: 10 If you are a former smoker, when did you quit?: 2014 Cigars Per Day: 0 Information on smoking cessation initiated: No 'Breaking Loose' booklet given: 02/21/17 Hx Alcohol Use: Yes Drug/Substance Use Hx: Yes Substance Use Type: Alcohol Hx Substance Use Treatment: Yes ([facility]) Review of Systems - Review of Systems Able to Perform ROS?: Yes Comments:: 04/30/19 13:36 CONSTITUTIONAL: Present: Needlestick injury absent: fever, chills, diaphoresis, generalized weakness, malaise, loss of appetite HEENT: Absent: rhinorrhea, nasal congestion, throat pain, throat swelling, difficulty swallowing, mouth swelling, ear pain, eye pain, visual Changes CARDIOVASCULAR: Absent: chest pain, loss of consciousness, palpitations, irregular heart rate, peripheral edema RESPIRATORY: Absent: cough, shortness of breath, dyspnea with exertion, orthopnea, wheezing, stridor, hemoptysis GASTROINTESTINAL: Absent: abdominal pain, abdominal distension, nausea, vomiting, diarrhea, constipation, melena, hematochezia GENITOURINARY: Absent: dysuria, frequency, urgency, hesitancy, hematuria, flank pain, genital pain MUSCULOSKELETAL: Absent: myalgia, arthralgia, joint swelling SKIN: Absent: rash, itching, pallor HEMATOLOGIC/IMMUNOLOGIC: Absent: easy bleeding, easy bruising, lymphadenopathy, frequent infections ENDOCRINE: Absent: unexplained weight gain, unexplained weight loss, heat intolerance, cold intolerance NEUROLOGIC: Absent: headache, focal weakness or paresthesias, dizziness, unsteady gait, seizure, mental status changes, bladder or bowel incontinence PSYCHIATRIC: Absent: anxiety, depression, suicidal or homicidal ideation, hallucinations. Is the patient limited Kiswahili proficient: No *Physical Exam - Vital Signs Last Vital Signs Temp Pulse Resp BP Pulse Ox 98.7 F 90 16 160/80 100 04/30/19 12:11 04/30/19 12:11 04/30/19 12:11 04/30/19 12:11 04/30/19 12:11 - Physical Exam 04/30/19 13:37 GENERAL: The patient is awake, alert, and fully oriented, in no acute distress. HEAD: Normal with no signs of trauma. EYES: Pupils equal, round and reactive to light, extraocular movements intact, sclera anicteric, conjunctiva clear. EXTREMITIES: Normal range of motion, no edema. NEUROLOGICAL: Normal speech, normal gait. PSYCH: Normal mood, normal affect. SKIN: Pinprick lesion noted to the right fourth finger. Warm, Dry, normal turgor, no rashes or lesions noted. ED Treatment Course - LABORATORY CBC & Chemistry Diagram: 04/30/19 13:40 04/30/19 13:40 Medical Decision Making - Medical Decision Making 04/30/19 13:38 The patient is a 43-year-old male who presents to the ER today after needlestick injury at work. 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 He does not know who his needle it was. He brought the needle to the emergency department and it appears dirty. He does not member the date of his last tetanus shot. A/P: Needlestick injury On exam there is a pinprick bradley to the right fourth finger. Patient states the area did bleed and he squeezed the blood out. Postexposure labs ordered. Tetanus updated. Patient will take the postexposure prophylaxis medication as the needle was very dirty and it is not known who the needle belongs to. Reevaluate 04/30/19 16:11 HIV testing is negative. Patient takes his first dose of prophylaxis medication in the ER. We will discharge home to have him follow-up with his primary care doctor in 1 month for repeat testing. I discussed the physical exam findings, ancillary test results and final diagnoses with the patient. I answered all of the patient's questions. The patient was satisfied with the care received and felt comfortable with the discharge plan and treatment plan. The Patient agrees to follow up with the primary care physician/specialist within 24-72 hours. Return precautions were given. Discharge - Discharge Information Problems reviewed: Yes Clinical Impression/Diagnosis: Needle stick injury of finger of right hand Condition: Stable Disposition: HOME - Admission No - Additional Discharge Information Prescriptions: Raltegravir [Isentress -] 400 mg PO BID #46 tab - Follow up/Referral Referrals: [facility] [Provider Group] - Patient Discharge Instructions Additional Instructions: Your evaluated for injuries after your needlestick today. You were started on prophylactic medication to prevent HIV. Your tetanus shot was updated today. Please take the medications as directed for 1 month. Side effects include nausea and vomiting. You may take the Zofran every 8 hours as needed. Please follow-up with your primary care doctor in 1 month to have your blood work redrawn. You need to get repeat bloods to make sure you do not have HIV in 1 month, 3 months and 6 months. Return to the ER for any new or worsening symptoms. 04/30/19 1. As discussed, a screening test for the HIV virus was performed today. Your HIV test is Negative (normal). 2. As discussed, if you engaged in high risk-behavior in the three (3) months prior to this test, you could still potentially be at risk and you will need to be re-tested. 3. As discussed, avoid any high risk behavior (such as unprotected sex or needle-sharing) in the future to minimize the chances of axel HIV. - Post Discharge Activity Work/Back to School Note: Back to Work
[2019-04-30] MEDS ORDERED: HIV POST EXPOSURE PROPHYLAXIS KIT PO ONE (13:53)
[2019-04-30 14:07] LABS: BASO % 0.7 % (0-2.0); EOS % 1.7 % (0-4.5); HEMATOCRIT 40.6 % (35.4-49); HEMOGLOBIN 13.9 GM/dL (11.7-16.9); LYMPH % 23.5 % (8-40); MCH 31.2 pg (25.7-33.7); MCHC 34.2 g/dl (32.0-35.9); MEAN CELL VOLUME 91.2 fl (80-96); MEAN PLT VOLUME 8.5 fl (7.5-11.1); MONO % 7.5 % (3.8-10.2); NEUT % 66.6 % (42.8-82.8); PLATELET COUNT 247 K/MM3 (134-434); RBC 4.46 M/mm3 (4.00-5.60); RDW 13.4 % (11.9-15.9); WHITE BLOOD COUNT 6.9 K/mm3 (4.0-10.0)
[2019-04-30 14:38] LABS: ALBUMIN 4.1 g/dl (3.4-5.0); BILIRUBIN,TOTAL 0.4 mg/dL (0.2-1); BLOOD UREA NITROGEN 6.2 mg/dL (7-18); CALCIUM 8.8 mg/dL (8.5-10.1); CREATININE 0.7 mg/dL (0.55-1.3); POTASSIUM 3.8 mmol/L (3.5-5.1); TOT PROT 7.5 g/dl (6.4-8.2)
== END 2019-04-30 16:18 | disposition home or self-care (01) ==
LOC: JERFT 12:06
PROC: 3E0234Z Introduction of Serum, Toxoid and Vaccine into Muscle, Percutaneous Approach (ICD-10-PCS; principal; 2019-04-30)
DX: S61.234A Puncture wound without foreign body of right ring finger without damage to nail, initial encounter (principal); W46.1XXA Contact with contaminated hypodermic needle, initial encounter; Y93.H3 Activity, building and construction; Y92.61 Building [any] under construction as the place of occurrence of the external cause; Y99.0 Civilian activity done for income or pay; F17.210 Nicotine dependence, cigarettes, uncomplicated
CPT/HCPCS: 36415; 80053; 85025; 86317; 86704; 86706; 86803; 87340; 87389; 90715; 99283-25